=== PATIENT | female | born 1960 ===

== ENCOUNTER 2022-11-10 07:22 | Observation (INO) ==
[~2022-11-10 07:22] MED LIST: Buffered Lidocaine 1% SYRIN 1 ml INTRADERM ONE; Lactated Ringers 1000 ml BAG 1,000 ML IV SCH; Naloxone 0.4 mg VIAL 0.4 mg/ml 1 ml VIAL IV PRN; Ondansetron 4 mg VIAL 2 MG/ML 2 ml VIAL IV PRN; fentaNYL 100 mcg/2 ml 50 MCG/ML VIAL IV PRN; oxyCODONE/Acetamin 5/325 mg TAB PO PRN
[2022-11-10] MEDS ORDERED: Midazolam 2 mg/2 ml VIAL 1 mg/ml 2 ml VIAL (2 mg) ONE (08:12)
[2022-11-10] MEDS ORDERED: ceFAZolin 2 GM PREMIX 2 GM/50 ML BAG ONE (08:29)
[2022-11-10] MEDS ORDERED: Tranexamic Acid 1,000 MG in NS 0.9% 50 ML IV ONE (09:00)
[2022-11-10] MEDS ORDERED: Dexmedetomidine 200 mcg/2 ml 2 ml VIAL (200 mcg) ONE (09:53)
[2022-11-10] MEDS ORDERED: Sodium Chloride 0.9% 10 ML ONE (09:54)
[2022-11-10] MEDS ORDERED: Phenylephrine 40 mcg/mL 10mL (400mcg) SYRINGE ONE (10:28)
[2022-11-10] MEDS ORDERED: Glycopyrrolate IV 0.2 MG/ML 1 ML VIAL ONE (10:28)
[2022-11-10] MEDS ORDERED: Phenylephrine IV 10 MG/ML 1 ml VIAL ONE (10:55)
[2022-11-10] MEDS ORDERED: Ondansetron 4 mg VIAL 2 MG/ML 2 ml VIAL IV PRN (12:32)
[2022-11-10] MEDS ORDERED: Magnesium Hydroxide LIQ 30 ML UDC PO PRN (12:32)
[2022-11-10] MEDS ORDERED: Ondansetron ODT 4 mg TAB 4 MG TAB PO PRN (12:32)
[2022-11-10] MEDS ORDERED: Lactulose 30 ml UDC PO PRN (12:32)
[2022-11-10] MEDS ORDERED: oxyCODONE/Acetamin 5/325 mg TAB ONE (13:28)
[2022-11-10] MEDS: Lactated Ringers 1000 ml BAG 1,000 ML IV SCH (13:55)
[2022-11-10] MEDS: Morphine 2 MG/ML SYRINGE IV PRN ×2 (17:37→22:37)
[2022-11-10] MEDS: ceFAZolin 1 GM ADVAN 1 GM in NS 0.9% 50 ML 50 ML IVPB SCH (18:35)
[2022-11-10] MEDS ORDERED: Simvastatin 10 mg TAB (NF) PO SCH (21:00)
[2022-11-10] MEDS: Magnesium Hydroxide LIQ 30 ML UDC PO SCH (21:09)
[2022-11-10] MEDS ORDERED: Prochlorperazine 5 mg/ml 2 ml VIAL (10 mg) IV PRN (21:33)
[2022-11-11] MEDS: Lactated Ringers 1000 ml BAG 1,000 ML IV SCH (00:20)
[2022-11-11] MEDS: ceFAZolin 1 GM ADVAN 1 GM in NS 0.9% 50 ML 50 ML IVPB SCH ×2 (01:53→10:44)
[2022-11-11 05:59] LABS: Hematocrit 33 % (35-47); Mean Platelet Volume 7.3 fL (7.4-10.4); Platelet Count 266 10^3/uL (150-450)
[2022-11-11 06:15] LABS: Calcium 8.8 mg/dL (8.6-10.3); Creatinine, Serum 0.67 mg/dL (0.51-0.95); eGFR CKD-EPI 97.5 (>60)
[2022-11-11 06:39] LABS: Folate 17.86 ng/mL (5.90-24.80)
[2022-11-11] MEDS ORDERED: Vitamin THERAPEUTIC TAB PO SCH (09:00)
[2022-11-11] MEDS ORDERED: Cholecalciferol (VIT D3) 1,000 unit TAB PO SCH (09:00)
[2022-11-11] MEDS: Magnesium Hydroxide LIQ 30 ML UDC PO SCH (09:09)
[2022-11-11 12:26] VITALS: BP 142/70
== END 2022-11-11 14:16 | disposition home or self-care (01) ==
LOC: AA 07:22 → SUATTDRO 07:22 → INTOOBSV 07:22 → SSU 14:13
PROVIDERS: ADMIT Orthopaedic Surgery Adult Reconstructive Orthopaedic Surgery; ATTEND Internal Medicine Hematology & Oncology